=== PATIENT | female | born 1945 | race Caucasian/White ===

== ENCOUNTER 2019-11-29 12:31 | Inpatient (IN) | payer OTHER ==
[~2019-11-29] VITALS: Ht 160 cm; Wt 110.8 kg
--- NOTE | ~2019-11-29 | P ---
[facility] [place] [address] PROCEDURE REPORT Name: DIDIER JOHNS Room #: 213-P [facility] IN M.R.#: [id number] Admission: 11/29/19 Attend Phys: Yoandy Grimm MD Discharge: 12/04/19 Date of : 43 Report #: [id number] THIS REPORT FOR: cc: GARETH - Family physician unknown GARETH - Family physician unknown Mendoza Flaherty MD ~ CC: Ja SERVIN unknown Mendoza Grimm PROCEDURE: BiV pacemaker and AV node ablation. PREOPERATIVE DIAGNOSES: 1. Atrial fibrillation. 2. Ischemic cardiomyopathy. 3. Congestive heart failure. HISTORY: The patient is a 74-year-old female who has had multiple recent hospitalizations at [facility] for AFib with rapid ventricular response. She has failed maintenance of sinus rhythm despite being adequately loaded with amiodarone therapy. She also has a history of coronary artery disease, status post CABG as well as an ischemic cardiomyopathy with an echocardiogram this hospitalization showing an ejection fraction of 35-40%. She is here for biventricular pacemaker implantation followed by AV node ablation. ANESTHESIA: The patient underwent MAC anesthesia with no anesthesia related complications. DESCRIPTION OF PROCEDURE: The patient underwent informed consent. We discussed the details of the procedure including the risks, which include but not limited to bleeding, infection, vascular damage, cardiac perforation, pneumothorax. She understood these risks and is willing to proceed. The patient was brought to the EP laboratory in a fasting and sedated state and prepped and draped in a sterile fashion. The patient received antibiotics prior to initiation of the procedure and underwent a venogram showing patency of left axillary vein. Next, I injected lidocaine at the incision site. Incision was made, pocket was created over the prepectoral fascia and access was obtained twice to the left axillary vein. Next, a ventricular lead was placed in the right ventricular apex with adequate pacing and sensing thresholds. Next, a guide sheath was placed in the coronary sinus and she had a posterior lateral branch that had an aneurysmal proximal segment and then a small distal branch. There was also an anterolateral branch and then there was a small middle cardiac vein that did not have a lateral target. Therefore, I initially attempted to position the lead into this posterior lateral branch. This was somewhat challenging, but eventually I got the lead at this location and there was [facility] [address] [place] [address] PROCEDURE REPORT Name: DIDIER JOHNS Room #: 213-P DIS IN M.R.#: [id number] Admission: 11/29/19 Attend Phys: Yoandy Grimm MD Discharge: 12/04/19 Date of : 43 Report #: [id number] absolutely no capture in this branch. I attempted to advance the lead somewhat more superiorly and this did not help and I also attempted to go down a more inferiorly directed branch and again there was absolutely no capture here. Therefore, I took the lead up into the anterolateral branch. This did have right bundle-branch pacing morphologies. The thresholds were higher at this site, but this was really her only option for any LV lead placement from the coronary sinus. Therefore, the sheath was split, lead remained in position and both leads were sutured to prepectoral fascia. Device was connected to the leads. The pocket was irrigated with vancomycin and then the pocket was closed in 2 layers using 2-0 for the deep layer, 3-0 for the mid layer and surgical glue was placed to outer skin layer. The implanted pacemaker was a Medtronic model #W4TR03, serial #[id number]. The RV lead was a Medtronic model #5076, 58 cm, serial #[id number] and the LV lead was a Medtronic model #599252, serial #[id number]. The RV lead demonstrated R waves of 5.9 millivolts, pacing impedance of 551 ohms and the pacing threshold of 0.75 volts at 0.4 milliseconds. The LV lead demonstrated a pacing impedance of 703 ohms, pacing threshold of 1.5 volts at 1 millisecond. This was pacing from LV1 to LV2. The device was programmed to the VVIR 70-130 mode. AV NODE ABLATION: After we completed the ICD implantation, the patient was then prepped in a standard fashion for AV node ablation. I obtained access to the right femoral vein and placed a short sheath and then exchanged this for an SR0 sheath and an 8-mm Biosense Champion ablation catheter. Ablation was performed at 70 vazquez and 60 degrees. I initially found a small potential that was likely a right bundle branch potential started by ablating at this site and pulled back and initially did not get heart block. I then pulled down somewhat inferiorly down to the level of the slow pathway and then continued ablating my way up and then I got a complete heart block. However, after about a minute, there was some return of conduction; therefore, I performed additional ablation at this site and the patient was left with a heart block. There was a slow escape rhythm at around 30 beats per minute noted. We monitored for about 30 minutes and there was no return of conduction. As such, catheters and sheaths were pulled. Hemostasis was obtained and the patient awoke neurologically and hemodynamically intact with no complications and no significant bleeding. CONCLUSIONS: 1. Successful implantation of a biventricular pacemaker. 2. Satisfactory right ventricular and left ventricular pacing and sensing thresholds. 3. Successful AV node ablation. By: 1327 1433 Mendoza Flaherty MD /nt
[2019-11-29 12:32] VITALS: BP 120/76
[2019-11-29 14:45] LABS: ABSOLUTE NEUTROPHILS 4.3 thou/uL (1.4-8.2); BASOPHILS 0.8 % (0.0-2.0); EOSINOPHILS 0.7 % (0.0-3.0); HEMATOCRIT 35.9 % (37.0-47.0); HEMOGLOBIN 11.6 gm/dL (12.0-15.0); LYMPHOCYTES 10.1 % (24.0-44.0); MCH 31.7 pg (26.0-34.0); MCHC 32.3 g/dL (28.0-37.0); MCV 98.1 fL (80.0-100.0); MONOCYTES 10.5 % (1.0-8.0); PLATELET COUNT 243 thou/uL (150-400); POLYS 77.9 % (36.0-66.0); RBC 3.66 mil/uL (4.20-5.00); RDW 14.4 % (10.5-14.5); WBC 5.5 thou/uL (4.0-11.0)
[2019-11-29 14:56] LABS: INR 1.3; PROTIME 12.9 Seconds (9.3-11.4)
[2019-11-29 15:02] LABS: CREATININE 1.5 mg/dL (0.6-1.0); POTASSIUM 4.4 mmol/L (3.5-5.1)
[2019-11-29 15:06] LABS: ALBUMIN 3.2 g/dL (3.4-5.0); DIRECT BILIRUBIN 0.3 mg/dL (<0.1-0.2); TOTAL PROTEIN 6.9 g/dL (6.4-8.2)
[2019-11-29] MEDS ORDERED: ELIQUIS5 MG PO (15:52)
[2019-11-29] MEDS ORDERED: PROTONIX40 M2 PO (15:52)
[2019-11-29] MEDS ORDERED: NORCO 10-325 T1 EACH PO (15:52)
[2019-11-29] MEDS ORDERED: TOPROL XL100 MG PO (15:52)
[2019-11-29] MEDS ORDERED: FUROSEMIDE 40 M40 MG PO (15:52)
[2019-11-29] MEDS ORDERED: STOOL SOFTENER1 EAC2 PO (15:53)
[2019-11-29] MEDS ORDERED: VITAMIN D325 MC5 PO (15:53)
--- NOTE | 2019-11-29 16:19 | EKG ---
[facility] [place] [address] ELECTROCARDIOGRAM REPORT Name: DEREKNASIMADIDIER Room #: REG [facility]#: [id number] Admission: 11/29/19 Attend Phys: Discharge: Date of : 43 Report #: [id number] THIS REPORT FOR: cc: FAM - Family physician unknown FAM - Family physician unknown Mendoza Flaherty MD ~ THIS REPORT FOR: //name// [facility] ED Test Date: 2019-11-29 Test Time: 12:38:27 Pat Name: DIDIER JOHNS Department: Room: Gender: F Satellite Dish Repairer: luis : 1945 Requested By: Hilda Romero Order Number: [id number] MD: Mendoza Flaherty Measurements Intervals [place] Rate: 126 P: [place]: QRS: -28 QRSD: 80 T: 146 QT: 287 QTc: 416 Interpretive Statements Atrial fibrillation with rapid V-rate Inferior infarct, old Consider anterior infarct Lateral leads are also involved No previous ECG available for comparison Electronically Signed On 11-29-2019 16:18:26 [employer] by Mendoza Flaherty [email or web address] <ELECTRONICALLY SIGNED> By: Mendoza Flaherty MD 11/29/19 1618 1238 1238 Mendoza Flaherty MD /TON
[2019-11-29 17:34] LABS: TSH 4.522 uIU/mL (0.358-3.740)
[2019-11-29 17:49] VITALS: BP 107/61
[2019-11-29 18:17] LABS: FOLIC ACID 31.6 ng/mL (8.6-58.9)
[2019-11-29 18:34] VITALS: BP 105/67
[2019-11-29 18:45] VITALS: BP 120/73
[2019-11-29 21:34] LABS: % SATURATION 15 % (20-39); IRON 51 ug/dL (50-170); TIBC 337 ug/dL (250-450)
[2019-11-30 00:45] VITALS: BP 126/85
[2019-11-30 02:09] LABS: ALPHA FETOPROTEIN-TUMOR* 1.7 ng/mL (0.0-8.3)
[2019-11-30 04:30] VITALS: BP 103/76
[2019-11-30 05:06] LABS: ABSOLUTE NEUTROPHILS 4.2 thou/uL (1.4-8.2); BASOPHILS 0.6 % (0.0-2.0); EOSINOPHILS 1.1 % (0.0-3.0); HEMATOCRIT 32.8 % (37.0-47.0); HEMOGLOBIN 10.5 gm/dL (12.0-15.0); MCH 31.6 pg (26.0-34.0); MCHC 32.2 g/dL (28.0-37.0); MCV 98.2 fL (80.0-100.0); MONOCYTES 6.5 % (1.0-8.0); PLATELET COUNT 213 thou/uL (150-400); POLYS 78.8 % (36.0-66.0); RBC 3.34 mil/uL (4.20-5.00); RDW 14.2 % (10.5-14.5); WBC 5.3 thou/uL (4.0-11.0)
[2019-11-30 05:24] LABS: CALCIUM 8.4 mg/dL (8.5-10.1); CREATININE 1.7 mg/dL (0.6-1.0); MAGNESIUM 1.6 mg/dL (1.8-2.4); POTASSIUM 4.3 mmol/L (3.5-5.1)
[2019-11-30 07:00] VITALS: BP 105/72
[2019-11-30 07:08] LABS: HAV IgM AB (ANTI-HAV IgM) Negative (Negative); HEPATITIS B SURFACE AG Negative (Negative); HEPATITIS C VIRUS AB <0.1 (0.0-0.9)
[2019-11-30 08:39] LABS: DIRECT BILIRUBIN 0.2 mg/dL (<0.1-0.2); TOTAL BILIRUBIN 0.6 mg/dL (<0.1-1.0); TOTAL PROTEIN 6.2 g/dL (6.4-8.2)
[2019-11-30 13:00] VITALS: BP 121/54
--- NOTE | 2019-11-30 13:20 | 2DMMODE ---
[facility] [place] [address] 2 D/M-MODE ECHOCARDIOGRAM Name: DIDIER JOHNS Room #: 213-P ADM IN M.R.#: [id number] Admission: 11/29/19 Attend Phys: Yoandy Grimm MD Discharge: Date of : 43 Report #: [id number] THIS REPORT FOR: cc: FAM - Family physician unknown FAM - Family physician unknown Alvaro Moreno MD [facility] ~ APPROVED REPORT Study performed: 11/30/2019 11:18:22 EXAM: Comprehensive 2D, Doppler, and color-flow Echocardiogram Patient Location: Bedside Room #: 213 Status: routine BSA: 2.02 HR: 83 bpm BP: 105/72 mmHg Rhythm: Atrial Fibrillation Other Information Study Quality: Adequate Indications Congestive Heart Failure COPD Diabetes Atrial Fibrillation CAD Cardiomyopathy Hypertension/HDD 2D Dimensions IVSd: 5.98 (7-11mm) LVOT Diam: 20.46 (18-24mm) LVDd: 55.82 mm PWd: 8.12 (7-11mm) Ascending Ao: 27.75 (22-36mm) LVDs: 46.41 (25-40mm) Aortic Root: 29.91 mm IVC: 29.00 mm Volumes Left Atrial Volume (Systole) Single Plane 4CH: 73.22 mL Single Plane 2CH: 59.68 mL LA ESV Index: 36.00 mL/m2 Aortic Valve [facility] [address] [place] [address] 2 D/M-MODE ECHOCARDIOGRAM Name: DIDIER JOHNS Room #: 213-P ADM IN M.R.#: [id number] Admission: 11/29/19 Attend Phys: Yoandy Grimm MD Discharge: Date of : 43 Report #: [id number] AoV Peak Dewayne.: 1.23 m/s AO Peak Gr.: 6.70 mmHg LVOT Max P.69 mmHg LVOT Max V: 0.65 m/s ZACKARY Vmax: 1.73 cm2 Pulmonary Valve PV Peak Dewayne.: 0.93 m/s PV Peak Gr.: 3.50 mmHg Tricuspid Valve TR Peak Dewanye.: 2.54 m/s TR Peak Gr.: 25.86 mmHg PA Pressure: 41.00 mmHg Left Ventricle Left ventricle is at the upper limits of normal. There is global hypokinesis of the left ventricle. There is normal left ventricular wall thickness. Left ventricular ejection fraction is moderately decreased. LVEF is 35-40%. This study is not technically sufficient to allow evaluation of the LV diastolic function due to atrial fibrillation. Right Ventricle Right ventricle is at the upper limits of normal. The right ventricular systolic function is normal. Atria Left atrium is dilated. Right atrium is dilated. Aortic Valve The aortic valve is midly sclerotic. Trace aortic regurgitation. There is no aortic valvular stenosis. Mitral Valve Mild mitral annular calcification Mild mitral regurgitation. No evidence of mitral valve stenosis. Tricuspid Valve The tricuspid valve is normal in structure. There is severe tricuspid regurgitation. Estimated PAP 40 mmHg. There is moderate pulmonary hypertension. Pulmonic Valve The pulmonary valve is normal in structure. Trace pulmonic regurgitation. Great Vessels [facility] [address] [place] [address] 2 D/M-MODE ECHOCARDIOGRAM Name: DIDIER JOHNS Room #: 213-P ADM IN .R.#: [id number] Admission: 11/29/19 Attend Phys: Yoandy Grimm MD Discharge: Date of : 43 Report #: [id number] The aortic root is normal in size. The inferior vena cava is dilated with no inspiratory collapse. Pericardium There is no pericardial effusion. <Conclusion> Left ventricular ejection fraction is moderately decreased. There is global hypokinesis of the left ventricle. LVEF is 35-40%. Both atria are dilated. The aortic valve is midly sclerotic. Trace aortic regurgitation, no stenosis. Mild mitral annular calcification. Mild mitral regurgitation. There is severe tricuspid regurgitation. Estimated pulmonary artery pressure of 40 mmHg. There is no pericardial effusion. <ELECTRONICALLY SIGNED> By: Alvaro Moreno MD, [facility] 11/30/19 1319 1319 1319 Alvaro Moreno MD, FACC /INF
[2019-11-30 15:08] LABS: CERULOPLASMIN 36.9 mg/dL (19.0-39.0)
[2019-11-30 17:00] VITALS: BP 120/50
[2019-11-30 20:15] VITALS: BP 107/51
[2019-12-01] VITALS: BP 103/52
[2019-12-01 04:26] LABS: ABSOLUTE NEUTROPHILS 2.8 thou/uL (1.4-8.2); BASOPHILS 0.7 % (0.0-2.0); EOSINOPHILS 2.8 % (0.0-3.0); HEMATOCRIT 34.5 % (37.0-47.0); HEMOGLOBIN 11.1 gm/dL (12.0-15.0); LYMPHOCYTES 13.8 % (24.0-44.0); MCH 31.6 pg (26.0-34.0); MCHC 32.1 g/dL (28.0-37.0); MCV 98.2 fL (80.0-100.0); MONOCYTES 7.3 % (1.0-8.0); PLATELET COUNT 208 thou/uL (150-400); POLYS 75.4 % (36.0-66.0); RBC 3.52 mil/uL (4.20-5.00); WBC 3.8 thou/uL (4.0-11.0)
[2019-12-01 04:35] LABS: ALBUMIN 2.9 g/dL (3.4-5.0); CALCIUM 8.4 mg/dL (8.5-10.1); CREATININE 1.6 mg/dL (0.6-1.0); DIRECT BILIRUBIN 0.1 mg/dL (<0.1-0.2); POTASSIUM 3.8 mmol/L (3.5-5.1); TOTAL BILIRUBIN 0.5 mg/dL (<0.1-1.0); TOTAL PROTEIN 6.2 g/dL (6.4-8.2)
[2019-12-01 04:55] VITALS: BP 117/57
[2019-12-01 08:20] VITALS: BP 129/56
[2019-12-01 12:00] VITALS: BP 128/80
[2019-12-01 15:20] VITALS: BP 114/66
[2019-12-01 20:15] VITALS: BP 117/65
[2019-12-02 04:45] VITALS: BP 112/53
[2019-12-02 07:03] LABS: ABSOLUTE NEUTROPHILS 2.2 thou/uL (1.4-8.2); BASOPHILS 1.2 % (0.0-2.0); HEMATOCRIT 33.9 % (37.0-47.0); LYMPHOCYTES 17.6 % (24.0-44.0); MCH 31.8 pg (26.0-34.0); MCHC 32.4 g/dL (28.0-37.0); MCV 98.2 fL (80.0-100.0); PLATELET COUNT 204 thou/uL (150-400); POLYS 68.2 % (36.0-66.0); RBC 3.46 mil/uL (4.20-5.00); RDW 14.4 % (10.5-14.5); WBC 3.2 thou/uL (4.0-11.0)
[2019-12-02 07:24] LABS: ALBUMIN 2.9 g/dL (3.4-5.0); CALCIUM 8.5 mg/dL (8.5-10.1); CREATININE 1.3 mg/dL (0.6-1.0); DIRECT BILIRUBIN 0.2 mg/dL (<0.1-0.2); POTASSIUM 3.4 mmol/L (3.5-5.1); TOTAL BILIRUBIN 0.5 mg/dL (<0.1-1.0); TOTAL PROTEIN 6.2 g/dL (6.4-8.2)
[2019-12-02 08:30] VITALS: BP 120/85
[2019-12-02 11:45] VITALS: BP 104/87
[2019-12-02 17:30] VITALS: BP 98/65
[2019-12-02 20:25] VITALS: BP 116/61
[2019-12-03] VITALS (11 sets, daily range): BP systolic 108–153; BP diastolic 53–83
[2019-12-03 06:32] LABS: ABSOLUTE NEUTROPHILS 2.2 thou/uL (1.4-8.2); BASOPHILS 1.4 % (0.0-2.0); EOSINOPHILS 2.4 % (0.0-3.0); HEMATOCRIT 35.4 % (37.0-47.0); HEMOGLOBIN 11.4 gm/dL (12.0-15.0); LYMPHOCYTES 20.7 % (24.0-44.0); MCH 31.6 pg (26.0-34.0); MCHC 32.3 g/dL (28.0-37.0); MONOCYTES 11.4 % (1.0-8.0); PLATELET COUNT 235 thou/uL (150-400); POLYS 64.1 % (36.0-66.0); RBC 3.62 mil/uL (4.20-5.00); RDW 14.3 % (10.5-14.5); WBC 3.5 thou/uL (4.0-11.0)
[2019-12-03 07:07] LABS: ALBUMIN 3.1 g/dL (3.4-5.0); CALCIUM 8.6 mg/dL (8.5-10.1); CREATININE 1.3 mg/dL (0.6-1.0); DIRECT BILIRUBIN 0.2 mg/dL (<0.1-0.2); POTASSIUM 3.4 mmol/L (3.5-5.1); TOTAL BILIRUBIN 0.6 mg/dL (<0.1-1.0); TOTAL PROTEIN 6.4 g/dL (6.4-8.2)
--- NOTE | 2019-12-03 07:55 | EKG ---
[facility] [place] [address] ELECTROCARDIOGRAM REPORT Name: DIDIER JOHNS Room #: 213-P ADM IN M.R.#: [id number] Admission: 11/29/19 Attend Phys: Yoandy Grimm MD Discharge: Date of : 43 Report #: [id number] THIS REPORT FOR: cc: FAM - Family physician unknown FAM - Family physician unknown Alvaro Moreno MD [facility] THIS REPORT FOR: //name// [facility] Test Date: 2019-12-02 Test Time: 10:41:26 Pat Name: DIDIER JOHNS Department: Room: 213 P Gender: F Media Marketing Specialist: : 1945 Requested By: Mendoza Flaherty Order Number: [id number] MD: Alvaro Moreno Measurements Intervals [place] Rate: 102 P: [place]: QRS: -32 QRSD: 85 T: 177 QT: 311 QTc: 406 Interpretive Statements Atrial fibrillation Inferior infarct, old Poor R wave progression Nonspecific ST and T wave abnormality Compared to ECG 11/29/2019 12:38:27 No significant changes Electronically Signed On 12-03-2019 7:54:03 FLITCH HANGER by Alvaro Moreno [email or web address] <ELECTRONICALLY SIGNED> By: Alvaro Moreno MD, [facility] 12/03/19 0754 1041 1041 Alvaro Moreno MD, [facility] /EPI
[2019-12-03 12:19] LABS: APTT 27.3 Seconds (24.5-32.8); INR 1.1; PROTIME 11.3 Seconds (9.3-11.4)
[2019-12-04] VITALS (8 sets, daily range): BP systolic 116–122; BP diastolic 46–60
[2019-12-04 05:27] LABS: ABSOLUTE NEUTROPHILS 3.7 thou/uL (1.4-8.2); EOSINOPHILS 1.5 % (0.0-3.0); HEMATOCRIT 35.7 % (37.0-47.0); HEMOGLOBIN 11.5 gm/dL (12.0-15.0); LYMPHOCYTES 14.5 % (24.0-44.0); MCH 31.8 pg (26.0-34.0); MCHC 32.3 g/dL (28.0-37.0); MCV 98.4 fL (80.0-100.0); MONOCYTES 10.3 % (1.0-8.0); PLATELET COUNT 215 thou/uL (150-400); POLYS 72.7 % (36.0-66.0); RBC 3.63 mil/uL (4.20-5.00); RDW 14.5 % (10.5-14.5); WBC 5.1 thou/uL (4.0-11.0)
[2019-12-04 06:05] LABS: CALCIUM 8.9 mg/dL (8.5-10.1); CREATININE 1.1 mg/dL (0.6-1.0); DIRECT BILIRUBIN 0.2 mg/dL (<0.1-0.2); POTASSIUM 3.3 mmol/L (3.5-5.1); TOTAL BILIRUBIN 0.6 mg/dL (<0.1-1.0); TOTAL PROTEIN 6.3 g/dL (6.4-8.2)
[2019-12-04] MEDS ORDERED: ASA5UEC PO (13:23)
[2019-12-04] MEDS ORDERED: METOPROLOL SUCC50 MG PO (13:23)
[2019-12-04] MEDS ORDERED: ALTACE5 MG PO (13:23)
[2019-12-04] MEDS ORDERED: K-DUR 20 MEQ T20 MEQ PO (13:23)
== END 2019-12-04 17:04 | disposition home or self-care (01) | DRG 242 ==
LOC: EDBD 12:31 → ER 12:31 → 2N 16:43 → EROBS 16:43 → 2N 18:42 → ENTRNSPT 12-04 16:25 → 2N 12-04 17:04
PROVIDERS: Internal Medicine Cardiovascular Disease; Internal Medicine Gastroenterology; Nurse Practitioner; ADMIT Internal Medicine
PROC: 02H633Z Insertion of Infusion Device into Right Atrium, Percutaneous Approach (ICD-10-PCS; principal; 2019-11-29)
PROC: B548ZZA Ultrasonography of Superior Vena Cava, Guidance (ICD-10-PCS; principal; 2019-11-29)
PROC: B5171ZZ Fluoroscopy of Left Subclavian Vein using Low Osmolar Contrast (ICD-10-PCS; 2019-12-03)
PROC: 02HL3JZ Insertion of Pacemaker Lead into Left Ventricle, Percutaneous Approach (ICD-10-PCS; 2019-12-03)
PROC: 02583ZZ Destruction of Conduction Mechanism, Percutaneous Approach (ICD-10-PCS; 2019-12-03)
PROC: 02HK3JZ Insertion of Pacemaker Lead into Right Ventricle, Percutaneous Approach (ICD-10-PCS; 2019-12-03)
PROC: B5161ZZ Fluoroscopy of Right Subclavian Vein using Low Osmolar Contrast (ICD-10-PCS; 2019-12-03)
PROC: 0JH607Z Insertion of Cardiac Resynchronization Pacemaker Pulse Generator into Chest Subcutaneous Tissue and Fascia, Open Approach (ICD-10-PCS; 2019-12-03)
DX: I48.21 Permanent atrial fibrillation (principal); I50.43 Acute on chronic combined systolic (congestive) and diastolic (congestive) heart failure; N17.9 Acute kidney failure, unspecified; C79.51 Secondary malignant neoplasm of bone; I13.0 Hypertensive heart and chronic kidney disease with heart failure and stage 1 through stage 4 chronic kidney disease, or unspecified chronic kidney disease; E46 Unspecified protein-calorie malnutrition; N18.4 Chronic kidney disease, stage 4 (severe); Z68.41 Body mass index [BMI] 40.0-44.9, adult; I48.20 Chronic atrial fibrillation, unspecified; I25.10 Atherosclerotic heart disease of native coronary artery without angina pectoris; I25.5 Ischemic cardiomyopathy; G47.33 Obstructive sleep apnea (adult) (pediatric); J44.9 Chronic obstructive pulmonary disease, unspecified; E11.22 Type 2 diabetes mellitus with diabetic chronic kidney disease; N18.9 Chronic kidney disease, unspecified; K59.09 Other constipation; E78.5 Hyperlipidemia, unspecified; R53.81 Other malaise; G47.00 Insomnia, unspecified; K21.9 Gastro-esophageal reflux disease without esophagitis; E55.9 Vitamin D deficiency, unspecified; Z85.3 Personal history of malignant neoplasm of breast; Z79.899 Other long term (current) drug therapy; Z88.6 Allergy status to analgesic agent; Z95.1 Presence of aortocoronary bypass graft; Z86.718 Personal history of other venous thrombosis and embolism; Z95.5 Presence of coronary angioplasty implant and graft; Z87.891 Personal history of nicotine dependence; Z92.3 Personal history of irradiation; Z92.21 Personal history of antineoplastic chemotherapy; Z79.01 Long term (current) use of anticoagulants
CPT/HCPCS: 10081; 27000; 62110; 62900; 70005